=== PATIENT | male | born 1985 | race Caucasian/White ===

== ENCOUNTER 2018-08-05 13:21 | Emergency (ER) | payer OTHER ==
--- OUTSIDE RECORDS SUMMARY | 2018-08-05 13:27 | XMS REPORT | Continuity of Care Document ---
:1985 External Reference #:[id number] Author Name Jackie Godwin Care Team Providers Name Role Phone [facility] Primary Care Physician Unavailable Payers Date Identification Numbers Payment Provider Subscriber Policy Number: [id number] Ciro Keller PayID: [id number] [address] [place] [address] Expires: 2018 Policy Number: [id number] Medicaid Tian Keller Group Name: 1 1 [address] PayID: [id number] [place] [address] Problems Active Problems Provider Date Other tear of medial meniscus, current injury, Opal Mary M.D. 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 Tablets Medications Administered in Office Medication SIG Qnty Indications Ordering Provider Date Depomedrol 40MG Opal Mary M.D. 07/14/2018 Injection Vital Signs Date Vital Result Comment 07/31/2018 2:53pm Height 69.75 inches 5'9.75" Weight 361.00 lb BP Systolic 146 mmHg BP Diastolic 87 mmHg Respiratory Rate 19 /min Pain Level 10 BMI (Body Mass Index) 52.2 kg/m2 07/14/2018 1:58pm Height 69.75 inches 5'9.75" Weight 358.00 lb Heart Rate 84 /min BP Systolic Sitting 138 mmHg BP Diastolic Sitting 80 mmHg Respiratory Rate 16 /min Body Temperature 98.1 F Pain Level 8 BMI (Body Mass Index) 51.7 kg/m2 06/16/2018 3:14pm Height 69.75 inches 5'9.75" Weight 358.00 lb Heart Rate 88 /min BP Systolic 136 mmHg BP Diastolic 76 mmHg Pain Level 8 BMI (Body Mass Index) 51.7 kg/m2 Results Test Date Facility Test Result H/L Range Note Xray 06/30/2018 [facility] MRI Knee Left W/O <pending> [address] [place] [address] [phone] Procedures Date Code Description Status 07/14/2018 58741 Inject/Drain Joint/Bursa Major W/O US Completed Encounters Type Date Location Provider Dx Diagnosis Office Visit 07/14/2018 [facility] Mary, M25.562 Pain in left knee 1:[facility] M25.462 Effusion, left knee S83.242A Oth tear of medial meniscus, current injury, left knee, init Office Visit 06/16/2018 3:00p [facility] Op[facility] Mary, M25.562 Pain in left [facility] knee M25.462 Effusion, left knee M23.8x2 Other internal derangements of left knee Plan of Treatment Future Appointment(s):08/30/2018 9:45 am - Opal Mary M.D. at [facility]08/17/2018 7:30 am - LEX Lai at [facility]08/17/2018 7:30 am - COLEMAN Parr at [facility]08/17/2018 7:30 am - COLEMAN Saba at [facility]08/17/2018 7:30 am [facility] Opal Mary M.D.M25.562 Pain in left kneeFollow up:Follow up: 2 weeks after kclvdtzE66.462 Effusion, left kneeS83.242D Other tear of medial meniscus, current injury, left knee, olivas
[2018-08-05 13:36] VITALS: BP 157/90
--- NOTE | 2018-08-05 14:04 | UC ---
Knee Pain HPI - HPI Summary HPI Summary: is having surgery in 2 weeks for meniscus. States yesterday, fell down some stairs after L knee buckled. Ecchymosis on R knee. States needs some crutches. - History of Current Complaint Chief Complaint: UCLowerExtremity Stated Complaint: LEFT KNEE COMPLAINT Time Seen by Provider: 08/05/18 13:38 Hx Obtained From: Patient Onset/Duration: Sudden Onset, Lasting Hours Severity Initially: Severe Severity Currently: Severe Pain Intensity: 9 Character: Aching Aggravating Factor(s): Movement, Weight Bearing, Prolonged Standing, Stairs Associated Signs And Symptoms: Positive: Bruising - Allergies/Home Medications Allergies/Adverse Reactions: Allergies Allergy/AdvReac Type Severity Reaction Status Date / Time aspirin Allergy Anaphylatic Verified 08/05/18 13:29 Shock Home Medications: Home Medications Hydrocodone/Acetaminophen [Vicodin 5-300 mg] 1 tab PO Q4H PRN 08/05/18 [History Confirmed 08/05/18] Lisinopril TAB* [Prinivil TAB*] 20 mg PO DAILY 08/05/18 [History Confirmed 08/05] Varenicline Tartrate [Chantix] 1 mg PO BID 08/05/18 [History Confirmed 08/05/18] PMH/Surg Hx/FS Hx/Imm Hx Previously Healthy: Yes - Surgical History Surgical History: Yes Surgery Procedure, Year, and Place: URETHRA, RESET OF LEFT FOREARM - Family History Known Family History: Positive: Cardiac Disease, Hypertension - Social History Alcohol Use: Weekly Substance Use Type: None Smoking Status (MU): Heavy Every Day Tobacco Smoker Type: Cigarettes Amount Used/How Often: 1 PPD Review of Systems All Other Systems Reviewed And Are Negative: Yes Skin: Positive: Bruising - on the iner aspect of right knee Musculoskeletal: Positive: Arthralgia - of left knee Is Patient Immunocompromised?: No Physical Exam Triage Information Reviewed: Yes Appearance: Well-Appearing, Pain Distress, Obese Vital Signs: Initial Vital Signs Temp 97.8 F 08/05/18 13:31 Pulse 95 08/05/18 13:31 Resp 18 08/05/18 13:31 BP 157/90 08/05/18 13:31 Pulse Ox 90 08/05/18 13:31 Vital Signs Reviewed: Yes Eye Exam: Normal ENT Exam: Normal Dental Exam: Normal Neck exam: Normal Respiratory Exam: Normal Cardiovascular Exam: Normal Abdominal Exam: Normal Musculoskeletal: Positive: No Edema, ROM Limited @ - with flex, pain in the lateral joint line, patient has hx of meniscus injury of the lateral left meniscus Neurological Exam: Normal Neurological: Positive: Fatigued Psychological Exam: Normal Knee Pain Course/Dx - Course Course Of Treatment: hx obtained, exam performed ,meds reviewed, surendra wrap and crutches given, he currently takes hydro codone for his pain. - Differential Dx/Diagnosis Differential Diagnosis/HQI/PQRI: Contusion, Fracture (Closed), Sprain, Strain Provider Diagnosis: Left knee pain Discharge - Sign-Out/Discharge Documenting (check all that apply): Patient Departure All imaging exams completed and their final reports reviewed: No Studies - Discharge Plan Condition: Stable Disposition: HOME Patient Education Materials: Knee Pain (ED) Referrals: No Primary Care Phys,NOPCP [Primary Care Provider] - Additional Instructions: 1. Ice, rest and elevate 2. Use the crutches, 3. Work non weight bearing, pain free range of motion to help with swelling. 4. Follow up with your surgeon if pain does not improve - Billing Disposition and Condition Condition: STABLE Disposition: Home
== END 2018-08-05 14:33 | disposition home or self-care (01) ==
LOC: UCCORT 13:21
DX: M25.562 Pain in left knee (principal); S80.01XA Contusion of right knee, initial encounter; W10.9XXA Fall (on) (from) unspecified stairs and steps, initial encounter; Y92.9 Unspecified place or not applicable; F17.210 Nicotine dependence, cigarettes, uncomplicated
CPT/HCPCS: 99213; G0463

== ENCOUNTER 2018-08-17 05:33 | Day surgery (SDC) | payer OTHER ==
--- NOTE | 2018-08-03 11:54 | HP ---
HISTORY AND PHYSICAL: DATE OF ADMISSION/SURGERY: 08/17/18 DATE OF OFFICE VISIT: 07/31/18 SURGEON: Opal Mary MD.* (DICTATED BY COLEMAN TEMPLE) PROCEDURES: Left knee arthroscopy with partial meniscectomy, possible chondroplasty, possible synovectomy and possible plica excision. CHIEF COMPLIANT: Left knee pain. HISTORY OF PRESENT ILLNESS: Mr. Bose is a 33-year-old gentleman with complaints of left knee pain. He has failed conservative treatment and elected to proceed with the left knee arthroscopy. PAST MEDICAL HISTORY: Hypertension. PAST SURGICAL HISTORY: Adenoidectomy, urethral surgery, and surgery for right upper extremity fracture. CURRENT MEDICATIONS: 1. Chantix 2 mg a day. 2. Lisinopril 20 mg a day. ALLERGIES: To ASPIRIN causing anaphylactic shock. FAMILY HISTORY: Denies. SOCIAL HISTORY: He is a 33-year-old gentleman, lives with his . He does not smoke or use drugs. Uses occasional alcohol. REVIEW OF SYSTEMS: A complete 14-point review of systems was reviewed with the patient. It was all negative or noncontributory. He denies history of DVT, PE , hepatitis, HIV or anesthesia problems. PHYSICAL EXAMINATION GENERAL: He is well developed, well nourished, in no acute distress. VITAL SIGNS: He stands 69 inches tall, weighs 358 pounds. His blood pressure is 146/87, heart rate is 84. HEENT: Normocephalic. NECK: Supple. No palpable lymph nodes. PULMONARY: The lungs are clear to auscultation bilaterally. CARDIO: Regular rate and rhythm. Strong S1, S2. ABDOMEN: Soft, nontender, nondistended. NEUROLOGICAL: He is alert and oriented x3. MUSCULOSKELETAL: Left lower extremity: The skin is intact. There are no open wounds or abrasions. He walks with an antalgic type gait favoring his left knee. Positive Apley's. Positive Shankar's. Negative Bimal's. Range of motion is 5 to 120 degrees of flexion. He has some tenderness over the medial and lateral joint line and there is a moderate effusion. ASSESSMENT AND PLAN: Mr. Bose is a 33-year-old gentleman with continued complaints of left knee pain and MRI confirms a longitudinal tear of the posterior horn of the medial meniscus with a likely displaced fragment. He is elected to proceed with a left knee arthroscopy with partial meniscectomy, possible chondroplasty, possible synovectomy and possible plica excision. The surgery is scheduled for 08/17/[address] Mary discussed the risks and benefits of the surgery at today's visit and all of his questions were answered. He will follow up with Dr. Mary 2 weeks after the surgery. COLEMAN TEMPLE [id number]/[facility] #: [id number] MTDD
[~2018-08-17 05:33] MED LIST: Buffered Lidocaine 1% SYRIN* 1 ML/SYRINGE INTRADERM ONE
[2018-08-17] MEDS ORDERED: Lactated Ringers 1000 ML Bag* 1,000 ML IV SCH (06:00)
[2018-08-17] MEDS ORDERED: Buffered Lidocaine 1% SYRIN* 1 ML/SYRINGE INTRADERM ONE (06:12)
[2018-08-17] MEDS ORDERED: ceFAZolin 2 GM in NS PREMIX(*) 2 GM/100 ML BAG IVPB ONE (06:12)
[2018-08-17] MEDS ORDERED: EPINEPHRINE 1 MG/ML 1 ML VIAL ONE (06:48)
[2018-08-17] MEDS ORDERED: methylPREDNISolone ACETATE 80* 80 MG/ML 1 ML VIAL ONE (06:48)
[2018-08-17] MEDS ORDERED: ROPIVACAINE 5 MG/ML 30 ML BTL (0.5%) ONE (06:48)
[2018-08-17] MEDS ORDERED: Lidocaine 2% PF * 5 ML VIAL ONE (06:54)
[2018-08-17] MEDS ORDERED: Propofol* 10 MG/ML 20 ML BTL ONE (06:54)
[2018-08-17] MEDS ORDERED: Succinylcholine* 20 MG/ML 10 ML VIAL ONE (06:54)
[2018-08-17] MEDS ORDERED: fentaNYL* 50 MCG/ML 2 ML VIAL (100 MCG VIAL) ONE ×2 (06:55→08:51)
[2018-08-17] MEDS ORDERED: Midazolam* 1 MG/ML 2 ML VIAL (2 MG) ONE (06:55)
[2018-08-17] MEDS ORDERED: ceFAZolin 1 GM ADVAN(*) 1 GM ADDV.VIAL IVPB ONE (07:01)
[2018-08-17] MEDS ORDERED: Rocuronium* 10 MG/ML VIAL ONE (07:34)
[2018-08-17] MEDS ORDERED: Dexamethasone IV* 4 MG/ML 1 ML (4 MG) ONE (07:47)
[2018-08-17] MEDS ORDERED: Ondansetron INJ* 2 MG/ML VIAL ONE (07:47)
[2018-08-17] MEDS ORDERED: Metoclopramide IV* 5 MG/ML 2 ML VIAL ONE (07:47)
[2018-08-17] MEDS ORDERED: Ketorolac INJ* 30 MG/ML 1 ML VIAL ONE (07:47)
[2018-08-17] MEDS ORDERED: Sugammadex * 500 MG/5 ML VIAL IV PUSH ONE (07:55)
[2018-08-17] MEDS ORDERED: Acetaminophen TAB* 325 MG PO PRN (08:32)
[2018-08-17] MEDS ORDERED: Naloxone* 0.4 MG/ML 1 ML VIAL IV PRN (08:32)
[2018-08-17] MEDS ORDERED: DiMENhydriNATE IV* 50 MG/ML VIAL IV PUSH PRN (08:32)
[2018-08-17] MEDS ORDERED: oxyCODONE TAB* 5 MG TAB PO PRN (08:32)
[2018-08-17] MEDS: fentaNYL* 50 MCG/ML 2 ML VIAL (100 MCG VIAL) IV PRN ×2 (08:52→09:11)
[2018-08-17 09:47] VITALS: BP 123/83
--- NOTE | 2018-08-17 21:25 | OP ---
DATE OF OPERATION: 08/17/18 - [facility] DATE OF : 83 SURGEON: Opal Mary MD HOTEL CLERK: COLEMAN Ness. Mr. Nix did help throughout the procedure with preparation of the leg wound, retraction, manipulation of the knee, and wound closure. ANESTHESIOLOGIST: Dr. Lopes. ANESTHESIA: General. PRE-OP DIAGNOSIS: Left knee medial meniscal tear. POST-OP DIAGNOSES: Left knee medial meniscal tear, lateral meniscal tear, anterior synovitis, [id number] osteoarthritis. OPERATIVE PROCEDURE: Left knee arthroscopy with partial medial meniscectomy, partial lateral meniscectomy, anterior synovectomy. INDICATIONS: Mr. Bose is a 33-year-old gentleman, who developed acute onset of mechanical symptoms in the left knee and extreme pain and swelling. MRI confirmed a medial meniscal tear. He elected to undergo arthroscopy due to severe pain and decreased quality of life. Informed consent was obtained from the patient. He understood the risks of surgery included, but not limited to, bleeding, infection, damage to nearby structures, continued pain, need for further surgery, retear of the meniscus, stroke, heart attack, blood clot, and . He wished to proceed. ESTIMATED BLOOD LOSS: Less than 25 cc. COMPLICATIONS: None. SPECIMEN: None. INTRAOPERATIVE FINDINGS: Intraoperatively, the patient was noted to have grade 2 and 3 Outerbridge cartilage changes in the patella, femoral, and medial compartments of the knee. He had a significant amount of anterior synovitis. He had a radial-type tear in the posterior medial meniscus with displacement anteriorly. He had a radial-type tear in the anterior portion of the lateral meniscus as well as the radial tear in the posterior horn of the lateral meniscus. DESCRIPTION OF PROCEDURE: Mr. Bose was identified in the preanesthesia unit. His left lower extremity was marked as the corrective operative side. Informed consent was signed and placed in the chart. The patient was taken to the operating room, placed under anesthesia without complication. Preop time-out was made to correctly identify the patient, side, and site. Appropriate perioperative antibiotics were given within 1 hour of incision. Left lower extremity was prepped and draped in the normal sterile fashion. A 0.5-cm anterolateral portal incision was made along the joint line and carried down into the joint. The trochar was introduced and the light/water sources were turned on. There was immediate visualization of the knee joint. A tour of the knee joint was performed. Suprapatellar pouch had no obvious abnormality. Patellofemoral compartment had some grade 2 and 3 Outerbridge cartilage changes. Medial gutters showed significant anterior synovitis but no loose body or plica. The anterior joint line had significant synovitis. Medial compartment of the knee showed some grade 2 and 3 Outerbridge cartilage changes. There was a radial tear in the white-red zone of the posterior medial meniscus with some displacement of a torn fragment anteriorly. ACL and PCL were intact. ACL appeared to have some laxity. Knee was placed in [id number] position. Minimal degenerative changes in the lateral compartment. There was a radial tear along the anterior horn and posterior horn of the lateral meniscus. Lateral gutters showed no abnormality. Under direct visualization, a medial portal incision was made with a 15-blade. Probe was introduced and a second tour of the knee joint was performed. No additional findings were noted. Shaver and radiofrequency ablation wand were used to perform anterior synovectomy. Visualization was much improved and there was no longer impingement of soft tissue with range of motion of the knee. A straight biter and shaver were used to perform partial medial meniscectomy along the white- red zone of the posterior third of the medial meniscus. A smooth border was obtained. Further probing of the medial meniscus showed no additional tears or flipped fragments. The knee was placed in the [id number] position. Straight biter and shaver were used to perform partial lateral meniscectomy of the radial tear along the anterior horn of the lateral meniscus and at the posterior horn of the lateral meniscus. Further probing of the lateral meniscus showed no additional tears or flipped fragments. The knee was copiously irrigated with sterile saline. All instruments were removed. Incisions were closed with 3-0 nylon suture. Intraarticular injection of 80 mg of Depo-Medrol and 6 cc of 0.25% Marcaine was placed in the knee joint. The patient's incisions were covered with Xeroform, 4x4s, and Webril. Elfego wrap and cold pack were placed over this. The patient's anesthesia was reversed without difficulty. He was taken to the PACU in stable condition. Intended weight-bearing will be weightbearing as tolerated. Intended DVT prophylaxis will be low dose eliquis for 2 weeks due to his morbid obesity and aspirin allergy. He will follow up in clinic in 2 weeks' time. [id number]/[facility] #: [id number] COLE
== END 2018-08-17 09:50 | disposition home or self-care (01) ==
LOC: OR 05:33
PROVIDERS: ATTEND Orthopaedic Surgery Adult Reconstructive Orthopaedic Surgery
DX: S83.242A Other tear of medial meniscus, current injury, left knee, initial encounter (principal); S83.282A Other tear of lateral meniscus, current injury, left knee, initial encounter; X58.XXXA Exposure to other specified factors, initial encounter; Y92.9 Unspecified place or not applicable; M65.862 Other synovitis and tenosynovitis, left lower leg; M17.12 Unilateral primary osteoarthritis, left knee; E66.01 Morbid (severe) obesity due to excess calories; Z72.0 Tobacco use; I10 Essential (primary) hypertension
CPT/HCPCS: J0330; J0690; J1040; J1100; J1885; J2250; J2405; J2704; J2765; J2795; J3010